=== PATIENT | female | born 1965 | race Caucasian/White ===

== ENCOUNTER 2022-10-20 17:59 | Outpatient (CLI) | payer MEDICAID | END 2022-10-20 18:00 | disposition short-term general hospital (02) | LOC: EMS 17:59 | DX: R45.851 Suicidal ideations (principal); Z72.89 Other problems related to lifestyle | CPT/HCPCS: A0425; A0429; A0999 ==

== ENCOUNTER 2024-03-21 12:49 | Outpatient (CLI) | payer MEDICAID | END 2024-03-21 23:59 | disposition left against medical advice (07) | LOC: EMS 12:49 | DX: S49.91XA Unspecified injury of right shoulder and upper arm, initial encounter (principal); V18.4XXA Pedal cycle driver injured in noncollision transport accident in traffic accident, initial encounter; Y93.55 Activity, bike riding; Y92.414 Local residential or business street as the place of occurrence of the external cause ==